=== PATIENT | female | born 1950 | race Caucasian/White ===

== ENCOUNTER 2022-10-16 15:28 | Outpatient (CLI) | payer MEDICARE, SELFPAY ==
[2022-10-16 21:45] LABS: Magnesium* 1.4 mg/dL (1.5-2.6)
[2022-10-16 21:59] LABS: NT Pro B Type NatriureticPept* 10800 pg/mL
== END 2022-10-16 15:29 | disposition home or self-care (01) ==
PROVIDERS: PCP Emergency Medicine; Visit Provider Emergency Medicine
DX: I50.9 Heart failure, unspecified (principal); E83.51 Hypocalcemia; D64.9 Anemia, unspecified; E87.6 Hypokalemia
CPT/HCPCS: 83735; 83880

== ENCOUNTER 2022-10-20 11:22 | Outpatient (CLI) | payer MEDICARE, SELFPAY | END 2022-10-20 11:23 | disposition home or self-care (01) | LOC: AMB 10-27 01:07 | PROVIDERS: PCP Emergency Medicine; Visit Provider Family Medicine | DX: I46.9 Cardiac arrest, cause unspecified (principal) ==